=== PATIENT | female | born 1980 | race Asian ===

== ENCOUNTER → 2024-10-19 | Outpatient (CLI) | payer BC, OTHER ==
[~2024-10-19] MED LIST: BAYER CHEWABLE81 MG PO; DHA100 MG PO; DOCU100 PO; IBUP800; IBUP800 PO; IRON150C PO; LEVFLO500 PO; OXYACE5T PO; PROM25 PO; Percocet 5-3251 EACH PO; Verotin-Gr Cap1 EACH PO; Zantac150 MG PO
== END | disposition home or self-care (01) ==
LOC: LAB SHORT 12:11
DX: K21.9 Gastro-esophageal reflux disease without esophagitis (principal)
CPT/HCPCS: 87338